=== PATIENT | male | born 1960 | race Caucasian/White ===

== ENCOUNTER 2021-01-05 18:38 | Emergency (ER) | payer MEDICARE, MEDICAID, SELFPAY ==
--- NOTE | ~2021-01-05 | CT_ITS ---
EXAMINATION: CT CHEST WITHOUT CONTRAST CLINICAL INFORMATION: Left rib pain COMPARISON: Previous chest x-ray September 2013 TECHNIQUE: Multidetector volumetric CT imaging of the chest was done. Axial MIP volume rendering provided. Sagittal and coronal reformatted images were obtained. This CT examination was performed using dose optimization techniques as appropriate, variously including the following: *Automated exposure control *Adjustment of mA and/or kV according to patient size (this includes techniques or standardized protocols for targeted exams where dose is matched to indication/reason for exam; i.e. 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 There is a abnormal parenchymal density seen in the left upper lobe involving the left major fissure and extending into the superior segment of the left lower lobe. This is irregularly-shaped and difficult to measure. This measures 2.5 cm in longitudinal transverse and AP dimension on sagittal and coronal reconstructed images. There are increased peripheral markings and increased parenchymal attenuation seen at the lung bases questionable for interstitial disease. There is a small calcified left lower lobe nodule. MEDIASTINUM: The heart is slightly enlarged. There is a left subclavian pacemaker. There is no pericardial effusion. The thoracic aorta is normal in caliber. There is shotty mediastinal lymphadenopathy. Evaluation for hilar adenopathy is limited without contrast. PLEURA: There is a small left pleural effusion. There is no pneumothorax. AXILLA: No lymphadenopathy. UPPER ABDOMEN: There are multiple liver cysts. There are several liver calcifications. The kidneys are enlarged and replaced with cysts suggestive of polycystic kidney disease. There is an aortic aneurysm and aortic stent graft that is approximately visualized. OSSEOUS STRUCTURES: There are left lateral fifth and sixth rib fractures. CT/CT chest wo con IMPRESSION: Severe emphysema and interstitial disease. 2.5 cm irregular density in the left upper and superior segment of the left lower lobe. Differential would include neoplastic, infectious and inflammatory process. Left lateral fifth and sixth rib fractures. Polycystic kidney disease. Multiple liver cysts.
[2021-01-05 19:00] VITALS: BP 155/68; PULSE 65; RESP 20; TEMP 36.6; O2SAT 97; BMI 24.4
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
--- NOTE | 2021-01-05 20:58 | ECG_ITS ---
Test Reason : DIFFICULT BREATHINH Blood Pressure : / mmHG Vent. Rate : 062 BPM Atrial Rate : 062 BPM P-R Int : 222 ms QRS Dur : 188 ms QT Int : 504 ms P-R-T Axes : 056 081 -21 degrees QTc Int : 511 ms Sinus rhythm with Ventricular-paced rhythm Abnormal ECG When compared with ECG of 04-OCT-2013 07:19, VA interval has increased Ventricular-paced rhythm is now Present Referred By: Kristin Sabillon Electronically Signed By:JEROME ABRAHAM MD
[2021-01-05 21:55] VITALS: PULSE 62; O2SAT 96
[2021-01-05] MEDS: Albuterol Sulfate (0.083%) 2.5 MG/3 ML VIAL.NEB INHALE (21:56)
[2021-01-05 22:21] LABS: MANUAL DIFF FLAG NO
[2021-01-05 22:27] LABS: Basophils Percent Auto 0.5 % (0-2); Hematocrit 35.2 % (42-52); Imm Gran Abs Auto 0.02 X10*3/uL (0.00-0.03); Imm Gran Pct Auto 0.2 % (0.0-0.4); Lymphocytes Absolute Auto 0.9 X10*3/uL (1.2-4.9); Lymphocytes Percent Auto 11.3 % (20-40); Mean Corpuscular HGB Conc 31.3 g/dl (31.0-36.0); Mean Corpuscular Hemoglobin 31.4 pg (27.0-33.0); Mean Corpuscular Volume 100.6 fL (80-98); Mean Platelet Volume 10.9 fL (9.4-12.4); Monocytes Absolute Auto 0.7 X10*3/uL (0.1-1.2); Monocytes Percent Auto 8.4 % (2-11); Neutrophils Absolute Auto 6.5 X10*3/uL (2.0-8.3); Neutrophils Percent Auto 79.6 % (45-73); Platelet Count 132 X10*3/uL (160-400); Red Cell Distribution Width 16.1 % (11.0-16.0); White Blood Count 8.1 X10*3/uL (4.8-10.8)
[2021-01-05] MEDS: predniSONE 20 MG TABLET 60 MG PO (22:30)
[2021-01-05] MEDS: HYDROcodone Bit/Acetam 5/325 TABLET 1 TAB PO (22:30)
[2021-01-05] MEDS: Lidocaine 4 % Patch ADH..PATCH 1 PATCH TRANSDERMA (22:31)
[2021-01-05 22:34] LABS: INTERNATIONAL NORM RATIO 1.1 (0.9-1.1); Prothrombin Time 12.6 SEC (10.8-13.0)
[2021-01-05 22:37] LABS: Partial Thromboplastin Time 25.8 SEC (24.1-38.0)
[2021-01-05 22:51] LABS: Lactic Acid 1.6 mmol/L (0.5-2.0)
[2021-01-05 23:08] LABS: Alanine Aminotransferase 15 U/L (0-40); Alkaline Phosphatase 57 U/L (39-117); Aspartate Amino Transferase 17 U/L (5-37); Bilirubin Direct 0.4 mg/dL (0.0-0.5); Bilirubin Total 0.9 mg/dL (0.0-1.0); Blood Urea Nitrogen 65 mg/dL (9-16); Calcium 9.2 mg/dL (8.4-10.2); Creatinine Clr Calc Pharmacy 8.4; Estimated Glomerular Filt Rate 6; Glucose Random 88 mg/dL (60-115); Lipase 21 U/L (8-78); Total Protein 6.8 g/dL (6.5-8.0); Troponin-I High Sensitivity 136.9 ng/L (<3.5-35.0)
[2021-01-05 23:13] LABS: Anion Gap 26 (12-20); Carbon Dioxide 25 mmol/L (22-29); Chloride 97 mmol/L (96-108); Potassium 5.3 mmol/L (3.3-5.1); Sodium 143 mmol/L (135-145)
== END 2021-01-05 22:42 | disposition home or self-care (01) ==
PROVIDERS: Emergency Provider Emergency Medicine
DX: J44.9 Chronic obstructive pulmonary disease, unspecified (principal); S22.32XA Fracture of one rib, left side, initial encounter for closed fracture; V18.0XXA Pedal cycle driver injured in noncollision transport accident in nontraffic accident, initial encounter; I12.0 Hypertensive chronic kidney disease with stage 5 chronic kidney disease or end stage renal disease; N18.6 End stage renal disease; Y93.55 Activity, bike riding; Y92.414 Local residential or business street as the place of occurrence of the external cause; Y99.9 Unspecified external cause status; Z85.118 Personal history of other malignant neoplasm of bronchus and lung; Z95.0 Presence of cardiac pacemaker; Z87.01 Personal history of pneumonia (recurrent); Z87.891 Personal history of nicotine dependence; Z99.81 Dependence on supplemental oxygen
CPT/HCPCS: 36415; 71250; 80048; 80076; 83605; 83690; 83735; 84484; 85025; 85610; 85730; 87040; 93005; 94640; 96374; 99284; 99285